=== PATIENT | female | born 1970 | race Two or more races ===

== ENCOUNTER 2017-07-18 07:40 | Emergency (ER) | payer OTHER ==
[2017-07-18 07:49] VITALS: RESP 20
[2017-07-18] MEDS ORDERED: NS 1,000 ML IV ONE (07:54)
[2017-07-18] MEDS ORDERED: ONDANSETRON 4 MG/2 ML VIAL IVP ONE (07:54)
[2017-07-18 08:05] LABS: COLOR YELLOW; LEUKOCYTE ESTERASE,URINE NEGATIVE (NEGATIVE); NITRITE,URINE NEGATIVE (NEGATIVE); PH,URINE 5.5 (5.0-7.5)
--- NOTE | 2017-07-18 08:14 | EDPHY ---
H & P Stated Complaint: NAUSEA, BLOAT, OFF AND ON WORSENING YESTERDAY Time Seen by Provider: 07/18/17 07:44 HPI/ROS: CHIEF COMPLAINT: Abdominal pain History by patient HISTORY OF PRESENT ILLNESS: 46-year-old woman status post cholecystectomy 1 year ago presents complaining of ongoing abdominal discomfort which she describes as a pain or tenderness in her right upper quadrant, bloating, nausea and a feeling that her injuries are being stretched apart which occur after she eats. She had similar symptoms prior to her cholecystectomy and they have persisted subsequently. She notes that recently they have been had more frequent and seemed to depend on what kind of food she eats but usually it is related to fatty foods and yesterday this episode began after eating blueberries. Her daughter had similar symptoms with appendicitis and the patient is wondering if she needs a CT scan today. She has had some nausea but no vomiting over the last 24 hours and has had no appetite and unable to eat more than a little bit of yogurt since yesterday morning. She has some chronic constipation for which she takes a laxative and had a normal bowel movement this morning. She denies diarrhea. She is currently not taking hydrocodone, she was last on that immediately postop. She states she also has a history of anxiety and was recently diagnosed with borderline diabetes. REVIEW OF SYSTEMS: As in HPI, and all other systems reviewed and are negative Source: Patient - Personal History LMP (Females 10-55): 8-14 Days Ago Current Tetanus/Diphtheria Vaccine: Yes - Medical/Surgical History Other PMH: anxiety, depression. GB - Family History Significant Family History: No pertinent family hx - Social History Smoking Status: Never smoked - Physical Exam Exam: General Appearance: Alert, obese, well-appearing. Eyes: Pupils equal and round no pallor or injection. ENT, Mouth: Mucous membranes moist. Respiratory: Normal, effort, lungs are clear to auscultation. No wheezes, rales or rhonchi. Cardiovascular: Regular rate and rhythm. S1, S2, no murmurs, gallops or rubs appreciated Gastrointestinal: Abdomen is soft and nontender, no masses, bowel sounds normal. Back: No CVA tenderness, no bony tenderness Neurological: Awake, alert and oriented x 3, no pronator drift, normal gait, no pronator drift Skin: Warm and dry, no rashes. Musculoskeletal: No deformities or tenderness. Extremitie:s full range of motion, no edema Psychiatric: Patient has normal affect, there is no agitation. Constitutional: Initial Vital Signs Temperature (C) 37.1 C 07/18/17 07:43 Heart Rate 98 07/18/17 07:43 Respiratory Rate 20 07/18/17 07:43 Blood Pressure 138/90 H 07/18/17 07:43 O2 Sat (%) 95 07/18/17 07:43 O2 Delivery Mode Room Air Allergies/Adverse Reactions: oxycodone Allergy (Verified 07/18/17 07:50) Home Medications: Medication Instructions Recorded Dicyclomine [Bentyl 20 MG (*)] 20 mg PO QID #60 tab 07/18/17 LaMICtal 07/18/17 MIRTAZAPINE 07/18/17 Seroquel 07/18/17 Medical Decision Making ED Course/Re-evaluation: 46-year-old woman with a history of ongoing nausea, bloating and right upper quadrant discomfort but no right lower quadrant pain fever or tenderness suggestive of appendicitis. Patient's symptoms clinically sound more like irritable bowel syndrome. Labs are all within normal limits with no evidence of hepatitis, pancreatitis or biliary obstruction. Urinalysis shows no evidence of infection. Patient is well appearing and hemodynamically stable. We discussed the diagnosis of irritable bowel syndrome and patient will do a trial of probiotics and Bentyl. She has a follow-up appointment pending with her GI specialist. We discussed that there was no need for CT scan today the patient was given reassurance. - Data Points Laboratory Results: Laboratory Results 07/18/17 08:20 07/18/17 08:20 07/18/17 07/18/17 07/18/17 08:20 08:20 08:00 WBC 5.99 10^3/uL 10^3/uL (3.80-9.50) RBC 5.04 10^6/uL 10^6/uL (4.18-5.33) Hgb 15.1 g/dL g/dL (12.6-16.3) Hct 43.4 % % (38.0-47.0) MCV 86.1 fL fL (81.5-99.8) MCH 30.0 pg pg (27.9-34.1) MCHC 34.8 g/dL g/dL (32.4-36.7) RDW 12.6 % % (11.5-15.2) Plt Count 323 10^3/uL 10^3/uL (150-400) MPV 8.8 fL fL (8.7-11.7) Neut % (Auto) 55.7 % % (39.3-74.2) Lymph % (Auto) 32.1 % % (15.0-45.0) [place] % (Auto) 6.7 % % (4.5-13.0) Eos % (Auto) 4.2 % % (0.6-7.6) Baso % (Auto) 0.8 % % (0.3-1.7) Nucleat RBC Rel Count 0.0 % % (0.0-0.2) Absolute Neuts (auto) 3.34 10^3/uL 10^3/uL (1.70-6.50) Absolute Lymphs (auto) 1.92 10^3/uL 10^3/uL (1.00-3.00) Absolute Monos (auto) 0.40 10^3/uL 10^3/uL (0.30-0.80) Absolute Eos (auto) 0.25 10^3/uL 10^3/uL (0.03-0.40) Absolute Basos (auto) 0.05 10^3/uL 10^3/uL (0.02-0.10) Absolute Nucleated RBC 0.00 10^3/uL 10^3/uL (0-0.01) Immature Gran % 0.5 % % (0.0-1.1) Immature Gran # 0.03 10^3/uL 10^3/uL (0.00-0.10) Sodium 142 mEq/L mEq/L (134-144) Potassium 4.3 mEq/L mEq/L (3.5-5.2) Chloride 106 mEq/L mEq/L (97-110) Carbon Dioxide 23 mEq/l mEq/l (22-31) Anion Gap 13 mEq/L mEq/L (8-16) BUN 14 mg/dL mg/dL (7-23) Creatinine 0.6 mg/dL mg/dL (0.6-1.0) Estimated GFR > 60 Glucose 101 mg/dL H mg/dL (70-100) Calcium 9.4 mg/dL mg/dL (8.5-10.4) Total Bilirubin 0.8 mg/dL mg/dL (0.1-1.4) Conjugated Bilirubin 0.3 mg/dL mg/dL (0.0-0.5) Unconjugated Bilirubin 0.5 mg/dL mg/dL (0.0-1.1) AST 20 IU/L IU/L (14-46) ALT 35 IU/L IU/L (9-52) Alkaline Phosphatase 81 IU/L IU/L (38-126) Total Protein 6.9 g/dL g/dL (6.3-8.2) Albumin 4.0 g/dL g/dL (3.5-5.0) Lipase 70 IU/L IU/L (23-300) Urine Color YELLOW Urine Appearance HAZY Urine pH 5.5 (5.0-7.5) Ur Specific [place] 1.025 (1.002-1.030) Urine Protein NEGATIVE (NEGATIVE) Urine Ketones NEGATIVE (NEGATIVE) Urine Blood NEGATIVE (NEGATIVE) Urine Nitrate NEGATIVE (NEGATIVE) Urine Bilirubin NEGATIVE (NEGATIVE) Urine Urobilinogen 0.2 EU EU (0.2-1.0) Ur Leukocyte Esterase NEGATIVE (NEGATIVE) Urine RBC 3-5 /hpf H /hpf (0-3) Urine WBC 0-1 /hpf /hpf (0-3) Ur Epithelial Cells 2+ /lpf H /lpf (NONE-1+) Urine Bacteria 1+ /hpf H /hpf (NONE SEEN) Urine Mucus 3+ /lpf H /lpf (NONE-1+) Urine Glucose NEGATIVE (NEGATIVE) Medications Given: Discontinued Medications Sodium Chloride (Ns) 1,000 mls @ 0 mls/hr IV EDNOW ONE; Wide Open PRN Reason: Protocol Stop: 07/18/17 07:55 Last Admin: 07/18/17 08:17 Dose: 1,000 mls Ondansetron HCl (Zofran) 4 mg IVP EDNOW ONE Stop: 07/18/17 07:55 Last Admin: 07/18/17 08:18 Dose: 4 mg Departure - Departure Disposition: Home, Routine, Self-Care Clinical Impression: Abdominal pain Qualifiers: Abdominal location: unspecified location Qualified Code(s): R10.9 - Unspecified abdominal pain Condition: Good Instructions: Irritable Bowel Syndrome (ED) Additional Instructions: You were seen by Dr. Cammy Mccurdy today. Your exam and lab work was all normal today. We found no indication to do a CT scan. I recommend following up with your regular doctor and/or GI specialist to discuss possibility of irritable bowel syndrome. You should avoid foods that seem to make your symptoms worse. Try taking probiotics daily (Try [employer] 4x probiotics found in antacid section of [facility]). See if the Bentyl helps your symptoms - take 4 times a day for the next week and then as needed and follow up with your GI specialist. Return for any worsening or new concerns. Referrals: Edgard Do DO [Primary Care Provider] - As per Instructions Prescriptions: Dicyclomine [Bentyl 20 MG (*)] 20 mg PO QID #60 tab
[2017-07-18 08:15] LABS: BACTERIA 1+ /hpf (NONE SEEN); MUCUS 3+ /lpf (NONE-1+); WBC,URINE 0-1 /hpf (0-3)
[2017-07-18 08:25] LABS: % IMMATURE GRANULYOCYTES 0.5 % (0.0-1.1); ABSOLUTE IMMATURE GRANULOCYTES 0.03 10^3/uL (0.00-0.10); ADD DIFF? NO; ADD MORPH? NO; ADD SCAN? NO; ATYPICAL LYMPHOCYTE FLAG 0 (0-99); FRAGMENT RBC FLAG 0 (0-99); HEMATOCRIT 43.4 % (38.0-47.0); HEMOGLOBIN 15.1 g/dL (12.6-16.3); LEFT SHIFT FLG 0 (0-99); LIPEMIA HEMOLYSIS FLAG 90 (0-99); MEAN CELL HEMOGLOBIN CONCENTR. 34.8 g/dL (32.4-36.7); MEAN CELL VOLUME 86.1 fL (81.5-99.8); MEAN PLATELET VOLUME 8.8 fL (8.7-11.7); PLATELET CLUMPS FLAG 0 (0-99); PLATELET COUNT 323 10^3/uL (150-400); RED BLOOD CELL COUNT 5.04 10^6/uL (4.18-5.33); RED CELL DISTRIBUTION WIDTH 12.6 % (11.5-15.2)
[2017-07-18 08:38] LABS: ALANINE AMINOTRANSFERASE 35 IU/L (9-52); ALKALINE PHOSPHATASE 81 IU/L (38-126); ANION GAP 13 mEq/L (8-16); ASPARTATE AMINOTRANSFERASE 20 IU/L (14-46); BILIRUBIN,TOTAL 0.8 mg/dL (0.1-1.4); BILIRUBIN-CONJUGATED 0.3 mg/dL (0.0-0.5); BILIRUBIN-UNCONJUGATED 0.5 mg/dL (0.0-1.1); CALCIUM 9.4 mg/dL (8.5-10.4); CARBON DIOXIDE 23 mEq/l (22-31); CHLORIDE 106 mEq/L (97-110); CREATININE 0.6 mg/dL (0.6-1.0); GLOMERULAR FILTRATION RATE > 60; GLUCOSE 101 mg/dL (70-100); POTASSIUM 4.3 mEq/L (3.5-5.2); SODIUM 142 mEq/L (134-144); TOTAL PROTEIN 6.9 g/dL (6.3-8.2)
[2017-07-18 09:19] VITALS: BP 123/84; PULSE 86; TEMP 98.1; O2SAT 93
== END 2017-07-18 09:10 | disposition home or self-care (01) ==
LOC: CED 07:40
DX: R10.9 Unspecified abdominal pain (principal); E86.9 Volume depletion, unspecified; Z90.49 Acquired absence of other specified parts of digestive tract
CPT/HCPCS: 80048-PO; 80076-PO; 81003-PO; 81015-PO; 83690-PO; 85025-PO; 96374; J2405

== ENCOUNTER → 2017-10-02 | Outpatient (CLI) | payer OTHER ==
[~2017-10-02] MED LIST: SINCALIDE 5 MCG VIAL IJ ONE
== END ==
LOC: FIMAGING 08:28
PROVIDERS: ATTEND Internal Medicine Gastroenterology
DX: R10.11 Right upper quadrant pain (principal); Z90.49 Acquired absence of other specified parts of digestive tract
CPT/HCPCS: 78227; A9537